=== PATIENT | female | born 1960 | race Caucasian/White ===

== ENCOUNTER 2016-12-06 12:44 | Inpatient (IN) | payer OTHER ==
--- NOTE | ~2016-12-06 | HP ---
History And Physical [facility] [address] [place]. [address] NAME: FÉLIX DURAN : 58 STATUS : ADM IN [facility]#: [id number] AGE: 56 ADM/REG DATE : 12/06/16 MR#: [id number] REPORT SERV DATE: 12/06/16 DICTATED BY: GODFREYXANDER DATE: 12/06/16 REPORT STATUS : Draft TRANSCRIBED BY: MODYosef DATE: 12/06/16 DATE OF ADMISSION: 12/06/2016 The patient is a 56-year-old female with a history of cerebral palsy and a history of anemia in the past, presented to [facility] with a complaint of abdominal pain, black stool, and coffee-ground vomiting. I initially spoke with the emergency room physician, Dr. Elliott, who reported that the patient had Hemoccult-positive stool and her blood pressure was stable, so he recommended GI evaluation. While seeing the patient, I noticed that she is short of breath and she is having cough which is nonproductive. Also she is complaining of epigastric pain which comes and goes and she says that is probably "my hiatal hernia". She denies chest pain, but she is complaining of upper abdominal pain as well as she is dyspneic and she said that she is dyspneic from the pain. She denies any fever or any rash or any sick contact. No constipation or diarrhea but she noticed black stool. All 14-point review of systems done and negative except what is stated in the history of present illness. PAST MEDICAL HISTORY: Past medical history known for history of hepatitis C, status post treatment in remission, history of gastroesophageal reflux disease, history of cerebral palsy, dyslipidemia, arthritis, and migraines as well as it includes a history of borderline vitamin B12 level, history of iron deficiency anemia in the past as well as she had a history of upper endoscopy on 08/17/[address] Melchor Hou showing a hiatal hernia, short segment of esophagus with inflammatory changes, and some chronic gastritis. She had a gastric biopsy which was normal. No evidence of H. pylori in 2010 as well as she had colonoscopy before which showed only internal hemorrhoids which were in moderate amount. She had a normal terminal ileum at that time in [address] Melchor Hou. SURGICAL HISTORY: Includes hysterectomy, cholecystectomy, appendectomy, and multiple orthopedic surgeries. Primary care physician is Dr. Valentine Marie. ALLERGIES: SHE IS ALLERGIC TO PENICILLIN, CODEINE, HYDROCODONE, OXYCODONE, ASPIRIN, AMPICILLIN, TAGAMET, LORATADINE, AND ZETIA. SOCIAL HISTORY: She lives alone. Her niece at bedside. She does not have children. She smokes one pack per day for the last 40 years and she still continues to smoke. She did not smoke since she was sick for a couple of days. No alcohol. No recreational drug use. FAMILY HISTORY: Significant for coronary artery disease in her mother and father. HOME MEDICATIONS: Tylenol 1000 mg daily as needed and Nexium 20 mg daily. PHYSICAL EXAMINATION: History And Physical [address] [address] NAME: FÉLIX DURAN : 58 STATUS : ADM IN [facility]#: [id number] AGE: 56 ADM/REG DATE : 12/06/16 MR#: [id number] REPORT SERV DATE: 12/06/16 DICTATED BY: XANDER DONAHUE DATE: 12/06/16 REPORT STATUS : Draft TRANSCRIBED BY: ABRIL DATE: 12/06/16 GENERAL: Well-nourished well-developed female not in acute distress. Resting quietly, but mildly short of breath. VITAL SIGNS: Blood pressure 159/81, temperature 98, heart rate 110 to 115, respiratory rate 20, and oxygen saturation 100 on room air. HEENT: Head atraumatic, normocephalic. Conjunctivae clear. Pupils are equal and reactive to light and accommodation. Extraocular muscles are intact. NECK: Supple. Trachea is midline. No supraventricular and cervical lymphadenopathy. LUNGS: Severely diminished breath sounds bilaterally. Slightly increased respiratory effort. CARDIOVASCULAR SYSTEM: Regular rate and rhythm. Mildly tachycardic. ABDOMEN: Soft. There is tenderness in the epigastric area and mild right upper quadrant. There is no guarding, no rebound. EXTREMITIES: No clubbing or cyanosis. Trace edema. PSYCHIATRIC: Normal mood and affect. SKIN: Normal color and turgor. LABORATORY RESULTS: Sodium 137, potassium 4.5, chloride 102, carbon dioxide 25, BUN 31, and creatinine 0.83. Blood sugar 110. ALT 17, AST 18. White count 10.2, hemoglobin 7.5, hematocrit 23.9, and a platelet count 386. PT 14.3, INR 1.1. I would like to mention that her hemoglobin last time was checked in our computer in August, it was 8.8. A chest x-ray is ordered by me and currently pending. EKG showed sinus tachycardia with a rate of 113. ASSESSMENT AND PLAN: This is a 56-year-old female with a past medical history of gastroesophageal reflux disease, hiatal hernia, history of anemia in the past with a history of upper and lower endoscopy in 2010, history of B12 deficiency and iron deficiency in the past, and history of cerebral palsy, presented with number 1. Coffee-ground emesis and black stool heme positive. 2. Anemia of acute blood loss. 3. Dyspnea. 4. Mild tachycardia. PLAN: The patient is anemic and her hemoglobin is 7.7, but she is also short of breath and the differential diagnosis here includes if she is short of breath from her anemia or she also has COPD exacerbation. Right now on auscultation, she has a significantly diminished breath sounds which with a history of smoking, full suspicion for COPD exacerbation although the patient does not have an official diagnosis of chronic obstructive pulmonary disease. She smoked for 40 years 1 pack per day and she continues to smoke. She is also having cough which is nonproductive but definitely she is coughing, so we will start evaluation with a chest x-ray. I asked the emergency room foundry technician to order chest x-ray, right now, to evaluate these as well as we will give her steroids and monitor her closely. With the epigastric discomfort which could be related to her hiatal hernia and coffee-ground emesis although I will be also suspicious for other problems. We will check her serial troponins as well as for the abdominal pain, I will do CT of the abdomen and pelvis without contrast. I will check her BNP, brain natriuretic peptide as well, to rule out any problems with the History And Physical [address] [place]. [address] NAME: FÉLIX DURAN : 58 STATUS : ADM IN PAT#: [id number] AGE: 56 ADM/REG DATE : 12/06/16 MR#: [id number] REPORT SERV DATE: 12/06/16 DICTATED BY: XANDER DONAHUE DATE: 03/25/17 REPORT STATUS : Draft TRANSCRIBED BY: ABRIL DATE: 12/06/16 congestive heart failure as well. 1. In the same time, we will give her 1 unit of blood transfusion followed with the Lasix. 2. We will check her urinalysis as well. We will put her on intravenous Protonix drip. Upon the review of old records, it was found that the patient had also head lice. We will ask nurses on the floor to evaluate her for head lice as well as we will put her on inhalers with albuterol ipratropium breathing treatment as well and we will follow up on these results. /ABRIL Xander Donahue M.D. / [id number] CC: Valentine Marie M.D.
--- NOTE | ~2016-12-06 | CN ---
Consultation Report [facility] [address] [place]. [address] NAME: FÉLIX DURAN : 58 STATUS : ADM IN [facility]#: [id number] AGE: 56 ADM/REG DATE : 12/06/16 MR#: [id number] REPORT SERV DATE: 12/07/16 DICTATED BY: MELCHOR HOU DATE: 12/07/16 REPORT STATUS : Draft TRANSCRIBED BY: ABRIL DATE: 12/07/16 CONSULTATION NOTE DATE OF CONSULTATION: 12/06/2016 REASON FOR CONSULTATION: The patient was admitted with nausea, vomiting, coffee-grounds emesis, and also some black stools and abdominal pain, also found to be very anemic. The patient has a history of chronic anemia as far as I can see until 2010. Also, noted to have heme-positive stool in the ER and admitted for upper endoscopy. The patient had exams as far as I know in 2010 or 2012, not sure. According to her, I had done the procedures, I do not have any reports to show that. She also complained epigastric pain and blaming to her large hiatal hernia. Also, has history of constipation off and on. PAST MEDICAL HISTORY: Significant for hepatitis C, status post treatment, in remission; history of GERD; history of cerebral palsy; dyslipidemia; arthritis; migraines; vitamin B12 deficiency; iron deficiency anemia. According to what I see in the note, I had done a procedure on 08/17/2011. Upper endoscopy shows hiatal hernia, gastritis. Had a colonoscopy in 2010 as well and noted to have hemorrhoids and normal terminal ileum. SURGICAL HISTORY: Hysterectomy, cholecystectomy, appendectomy, multiple orthopedic surgery. PRIMARY CARE PHYSICIAN: Dr. Valentine Marie. ALLERGIES: SHE IS ALLERGIC TO PENICILLIN, CODEINE, HYDROCODONE, OXYCODONE, ASPIRIN, AMPICILLIN, TAGAMET, LORATADINE, AND ZETIA. SOCIAL HISTORY: She lives alone. No children. Smokes a pack a day for forty years or more. No alcohol. No drugs. FAMILY HISTORY: Significant for coronary artery disease, both parents. HOME MEDICATIONS: Tylenol 1000 mg as needed. REVIEW OF SYSTEMS: Noted from the chart. Denies any headache. No chest pain. No difficulty breathing. Abdominal pain is better. No urinary symptoms. Some fatigue present. All other systems reviewed as per history. PHYSICAL EXAMINATION: VITAL SIGNS: Blood pressure 155/89, temperature 98, heart rate anywhere between 90 to 100 per minute, respirations about 16 to 18 per minute. GENERAL: This is a douglass female, in no acute distress, sitting in the bed. HEENT: No icterus. Pale conjunctivae. Consultation Report [facility] [address] [place]. [address] NAME: FÉLIX DURAN : 58 STATUS : ADM IN [facility]#: [id number] AGE: 56 ADM/REG DATE : 12/06/16 MR#: [id number] REPORT SERV DATE: 12/07/16 DICTATED BY: MELCHOR HOU DATE: 12/07/16 REPORT STATUS : Draft TRANSCRIBED BY: ABRIL DATE: 12/07/16 NECK: Supple. No JVD. CHEST: Bilateral fair air flow. Normal excursions. HEART: S1, S2. Regular rate and rhythm. ABDOMEN: Soft. Bowel sounds present. Has some left lower quadrant, left-sided tenderness, otherwise benign. EXTREMITIES: No clubbing, cyanosis, or edema. NEUROLOGICAL: Alert, oriented, moving all extremities. PSYCH: Normal affect. LABORATORY DATA: Sodium 137, potassium 4.5, BUN 31, creatinine 0.83. ALT and AST normal. White count is 10.2, hemoglobin 7.5, hematocrit 23.9, platelet count 286,000. PT 14.3, INR 1.1. RDW increased. CT of the abdomen is inconclusive. ASSESSMENT: Chronic history of anemia with nausea, vomiting, some coffee-ground emesis, and some melena. Also, has history of large hiatal hernia. PLAN: At this time is to evaluate this history with upper endoscopy as soon as possible. Also, give some blood transfusions and if necessary we can stop all the PPIs and maybe start an H2 blockers, which might help with iron deficiency anemia. We will also give some laxatives to clean her out. We will follow her in the office from then on. AMERICO/ABRIL Melchor Hou M.D. / [id number] CC: Romana Carpenter M.D.
--- NOTE | ~2016-12-06 | DS ---
Discharge Summary [facility] [id number] [place]. [address] NAME: FÉLIX DURAN : 58 STATUS : DIS IN PAT#: [id number] AGE: 56 ADM/REG DATE : 12/06/16 MR#: [id number] REPORT SERV DATE: 12/10/16 DICTATED BY: JOSE RAPHAEL DATE: 12/09/16 REPORT STATUS : Draft TRANSCRIBED BY: MODL DATE: 12/09/16 ADMISSION DATE: 12/06/2016 DISCHARGE DATE: 12/09/2016 FINAL DIAGNOSES: 1. Acute blood loss anemia, status post 1 unit packed red blood cells. 2. Reflux esophagitis; esophageal ulcer; gastric ulcer; hiatal hernia, moderate. 3. Upper gastrointestinal bleed secondary to above. 4. Chronic obstructive pulmonary disease. 5. Tobacco abuse. 6. History of cerebral palsy. DIAGNOSTIC EXAM: Chest x-ray showing no acute process, moderate-sized hiatal hernia, no change. CAT scan of the abdomen and pelvis showing no acute abdominal or pelvic pathology. No imaging explanation for reported abdominal pain or GI bleeding, status post cholecystectomy, appendectomy, hysterectomy, nonspecific hepatic steatosis pattern, moderate large hiatal hernia measuring 7.4 cm diameter. HOSPITAL COURSE: Please refer to the H and P done by Dr. Dallas dated 12/06/2016. Briefly, this is a 56-year-old female with cerebral palsy, hiatal hernia, comes in for abdominal pain, melena, and coffee-ground vomiting. The patient has been having some epigastric pain and believes that it is her hiatal hernia. The patient went to the emergency room and was admitted by Dr. Dallas. Further evaluation revealed that the patient needed a GI evaluation and Dr. Hou got involved. He did an EGD which revealed normal nasopharynx, dilation in the lower third of esophagus, grade C reflux esophagitis, nonbleeding esophageal ulcer, gastric ulcers and was biopsied. He recommended the patient to follow up in his clinic and continue an H2 reji. The patient's H and H were followed and it shows an initial H and H of 7.5 and 23.9. She got a unit of blood, and on discharge, it was 8.8 and 27.2. The patient did not have any more bleeding, but continued having the pain. When told that she is going to have this because of her ulcers, she understood the pathology of which. She expressed her wishes to go home. She will follow up with Dr. Valentine Marie in one to two weeks and Dr. Hou in two weeks and they will need to follow up the biopsy of the ulcers that was taken during the EGD. The patient will be on the following medications. Nexium 40 mg twice a day, Pepcid 20 mg twice a day, and Tylenol p.r.n. This has been explained to the patient and she agreed and understood the plan. TIME SPENT: 40 minutes. ED/ABRIL Jose Raphael M.D. Discharge Summary [address] [place]. [address] NAME: FÉLIX DURAN : 58 STATUS : DIS IN PAT#: [id number] AGE: 56 ADM/REG DATE : 12/06/16 MR#: [id number] REPORT SERV DATE: 12/10/16 DICTATED BY: JOSE RAPHAEL. DATE: 12/09/16 REPORT STATUS : Draft TRANSCRIBED BY: ABRIL DATE: 12/09/16 / [id number] CC: Romana Sherwood M.D.
--- NOTE | ~2016-12-06 | EGD ---
EGD REPORT [facility] [address] [address] NAME: WINIFRED DURAN : 58 STATUS : ADM IN PAT#: [id number] AGE: 56 ADM/REG DATE : 12/06/16 MR#: [id number] REPORT SERV DATE: 12/07/16 DICTATED BY: FANG ANDRADE DATE: 12/07/16 REPORT STATUS : Draft [facility]ANSCRIBED BY: [facility] DATE: 12/07/16 Endoscopy Center Patient Name: Winifred Duran Date of : 1960 Attending MD: FANG ANDRADE MD Procedure Date No Time: 12/07/2016 Procedure: Upper GI endoscopy Indications: Anemia, Hematemesis, Melena Referring MD: DANYELLE FERNANDEZ MD Medicines: Monitored Anesthesia Care Complications: No immediate complications. Procedure: Pre-Anesthesia Assessment: - ASA Grade Assessment: III - A patient with severe systemic disease. After obtaining informed consent, the endoscope was passed under direct vision. Throughout the procedure, the patient's blood pressure, pulse, and oxygen saturations were monitored continuously. The GIF [id number] was introduced through the mouth, and advanced to the third part of duodenum. The upper GI endoscopy was accomplished without difficulty. The patient tolerated the procedure well. Findings: The nasopharynx was normal. The lumen of the lower third of the esophagus was moderately dilated. LA Grade C (one or more mucosal breaks continuous between tops of 2 or more mucosal folds, less than 75% circumference) esophagitis with no bleeding was found in the lower third of the esophagus. One superficial esophageal ulcer with no bleeding and no stigmata of recent bleeding was found at the gastroesophageal junction. The lesion was 5 mm in largest dimension. Few non-bleeding superficial gastric ulcers with pigmented material were found in the cardia. The largest lesion was 10 mm in largest dimension. Biopsies were taken with a cold forceps for histology. Verification of patient identification for the specimen was done. Estimated blood loss was minimal. One non-bleeding cratered gastric ulcer with pigmented material was found in the cardia. The lesion was 14 mm in largest dimension. The examined duodenum was normal. Biopsies were taken with a cold forceps for histology. Verification of patient identification for the specimen was done. Estimated blood loss was minimal. A large hiatus hernia was present. Impression: - Normal nasopharynx. EGD REPORT [address] [place]. [address] NAME: WINIFRED DURAN : 58 STATUS : ADM IN [facility]#: [id number] AGE: 56 ADM/REG DATE : 12/06/16 MR#: [id number] REPORT SERV DATE: 12/07/16 DICTATED BY: FANG ANDRADE DATE: 12/07/16 REPORT STATUS : Draft TRANSCRIBED BY: [employer] DATE: 12/07/16 - Dilation in the lower third of the esophagus. - LA Grade C reflux esophagitis. - Non-bleeding esophageal ulcer. - Gastric ulcers. Biopsied. - Gastric ulcer. - Normal examined duodenum. Biopsied. Recommendation: - Follow an antireflux regimen daily. - Use Pepcid (famotidine) 20 mg PO BID daily. - Return to my office in 2 weeks. Procedure Code(s): --- Professional --- 42860, Esophagogastroduodenoscopy, flexible, transoral; with biopsy, single or multiple Diagnosis Code(s): --- Professional --- K22.8, Other specified diseases of esophagus K21.0, Gastro-esophageal reflux disease with esophagitis K22.10, Ulcer of esophagus without bleeding K25.9, Gastric ulcer, unspecified as acute or chronic, without hemorrhage or perforation D64.9, Anemia, unspecified K92.0, Hematemesis K92.1, Melena CPT copyright 2013 [employer]. All rights reserved. The codes documented in this report are preliminary and upon pedodontist review may be revised to meet current compliance requirements. FANG ANDRADE MD 12/07/2016 10:51 AM This report has been signed electronically. Number of Addenda: 0 Note Initiated On: 12/07/2016 9:18 AM Scope Withdrawal Time 0 hours 0 minutes 0 seconds
[~2016-12-06 12:44] MED LIST: FLEX PO; NEUR100 PO; NEXIUM40 PO; PAX20 PO
[2016-12-06 13:04] LABS: BASOPHILS 0.4 %; BASOPHILS ABSOLUTE 0.04 10/3/uL (0.0-0.16); EOSINOPHILS 0.1 %; EOSINOPHILS ABSOLUTE 0.01 10/3/uL (0.0-0.53); ER CBC TAT 0 Hrs 03 Mins; HEMOGLOBIN 7.5 g/dL (12.0-16.0); IMMATURE GRANULOCYTES 0.3 %; IMMATURE GRANULOCYTES ABSOLUTE 0.03 10/3/uL (0.0-0.11); LYMPHOCYTES 23.7 %; LYMPHOCYTES ABSOLUTE 2.41 10/3/uL (0.67-4.30); MEAN CORPUS HGB CONC 31.4 g/dL (32.0-36.0); MEAN CORPUSCULAR HEMOGLOB 25.1 pg (26.0-34.0); MEAN PLATELET VOLUME 9.8 fL (9.2-13.0); MONOCYTES 10.2 %; MONOCYTES ABSOLUTE 1.04 10/3/uL (0.21-1.20); NEUTROPHILS 65.3 %; NEUTROPHILS ABSOLUTE 6.64 10/3/uL (2.02-8.40); RED CELL COUNT 2.99 10/6/uL (4.0-5.6); WHITE BLOOD CELLS 10.2 10/3/uL (4.5-10.5)
[2016-12-06 13:05] LABS: HEMATOCRIT 23.9 % (36.0-48.0); MANUAL DIFF NO %; MEAN CORPUSCULAR VOLUME 79.9 fL (80-100); PLATELET COUNT 386 10/3/uL (150-400); RBC DISTRIBUTION WIDTH 16.3 % (12.0-16.0)
[2016-12-06 13:12] LABS: INTERNATIONAL NORMAL RATI 1.1 UNITS (-); PARTIAL THROMBO TIME 23.5 SEC (22.5-37.2); PROTIME (NOT ORD) 14.3 SEC (12.0-14.5)
[2016-12-06 13:19] LABS: A/G RATIO 0.9 (0.7-1.9); ALBUMIN 3.5 G/DL (3.5-5.0); CALCIUM, SERUM 9.8 MG/DL (8.5-10.4); CHLORIDE, SERUM 102 MMOL/L (96-112); CO2 (CARBON DIOXIDE) 25 MMOL/L (24-34); CREATININE 0.83 MG/DL (0.55-1.02); GFR AFRICAN AMERICAN 91 ML/MIN (>=60); GFR NON AFRICAN AMERICAN 78 ML/MIN (>=60); GLOBULIN 4.1 G/DL (2.5-4.1); POTASSIUM, SERUM 4.5 MMOL/L (3.5-5.3); SGOT(AST) 18 U/L (5-40); SGPT(ALT) 17 U/L (5-65); SODIUM, SERUM 137 MMOL/L (135-148); TOTAL BILIRUBIN 0.3 MG/DL (0-1.2); TOTAL PROTEIN 7.6 G/DL (6.0-8.5)
[2016-12-06 13:20] LABS: ALKALINE PHOSPHATASE 68 U/L (45-117); BUN (BLOOD UREA NITROGEN) 31 MG/DL (6-23); GLUCOSE, SERUM 110 MG/DL (60-99)
[2016-12-06] MEDS ORDERED: ACET500CAP PO (14:04)
[2016-12-06] MEDS ORDERED: NEXIUM20 M1 PO (14:04)
[2016-12-06 20:14] LABS: FOLATE 9.3 NG/ML (>5.2); TROPONIN I 0.03 NG/ML (<0.05); ULTRASENSITIVE TSH 4.29 MCIU/ML (0.358-3.740)
[2016-12-06 22:57] LABS: HEMOGLOBIN 8.8 g/dL (12.0-16.0)
[2016-12-06 22:58] LABS: HEMATOCRIT 27.3 % (36.0-48.0)
[2016-12-07 01:01] LABS: BASOPHILS 0.3 %; BASOPHILS ABSOLUTE 0.03 10/3/uL (0.0-0.16); EOSINOPHILS 0.1 %; EOSINOPHILS ABSOLUTE 0.01 10/3/uL (0.0-0.53); HEMATOCRIT 25.5 % (36.0-48.0); HEMOGLOBIN 8.4 g/dL (12.0-16.0); IMMATURE GRANULOCYTES 0.4 %; IMMATURE GRANULOCYTES ABSOLUTE 0.05 10/3/uL (0.0-0.11); LYMPHOCYTES 10.2 %; LYMPHOCYTES ABSOLUTE 1.15 10/3/uL (0.67-4.30); MEAN CORPUS HGB CONC 32.9 g/dL (32.0-36.0); MEAN CORPUSCULAR HEMOGLOB 26.1 pg (26.0-34.0); MEAN CORPUSCULAR VOLUME 79.2 fL (80-100); MEAN PLATELET VOLUME 10.4 fL (9.2-13.0); MONOCYTES 1.4 %; MONOCYTES ABSOLUTE 0.16 10/3/uL (0.21-1.20); NEUTROPHILS 87.6 %; NEUTROPHILS ABSOLUTE 9.82 10/3/uL (2.02-8.40); NUCLEATED RED BLOOD CELLS 0.5 /100WBC (0-0); PLATELET COUNT 333 10/3/uL (150-400); RBC DISTRIBUTION WIDTH 16.4 % (12.0-16.0); RED CELL COUNT 3.22 10/6/uL (4.0-5.6); WHITE BLOOD CELLS 11.2 10/3/uL (4.5-10.5)
[2016-12-07 01:03] LABS: MANUAL DIFF NO %
[2016-12-07 01:13] LABS: CHLORIDE, SERUM 100 MMOL/L (96-112); CO2 (CARBON DIOXIDE) 25 MMOL/L (24-34); CREATININE 0.89 MG/DL (0.55-1.02); GFR AFRICAN AMERICAN 83 ML/MIN (>=60); GFR NON AFRICAN AMERICAN 72 ML/MIN (>=60); POTASSIUM, SERUM 3.8 MMOL/L (3.5-5.3); SODIUM, SERUM 136 MMOL/L (135-148); TROPONIN I <0.02 NG/ML (<0.05)
[2016-12-07 01:14] LABS: BUN (BLOOD UREA NITROGEN) 23 MG/DL (6-23); CALCIUM, SERUM 8.5 MG/DL (8.5-10.4); GLUCOSE, SERUM 141 MG/DL (60-99)
[2016-12-07 08:28] LABS: HEMATOCRIT 25.2 % (36.0-48.0); HEMOGLOBIN 8.3 g/dL (12.0-16.0)
[2016-12-07 10:05] LABS: PROCALCITONIN 0.06 ng/mL (<0.5)
[2016-12-07 16:29] LABS: HEMATOCRIT 24.2 % (36.0-48.0); HEMOGLOBIN 7.8 g/dL (12.0-16.0)
[2016-12-08 06:52] LABS: HEMATOCRIT 23.9 % (36.0-48.0); HEMOGLOBIN 7.4 g/dL (12.0-16.0)
[2016-12-08 21:09] LABS: HEMATOCRIT 28.5 % (36.0-48.0); HEMOGLOBIN 9.2 g/dL (12.0-16.0)
[2016-12-09 05:35] LABS: BASOPHILS 0.3 %; BASOPHILS ABSOLUTE 0.02 10/3/uL (0.0-0.16); EOSINOPHILS 0.5 %; EOSINOPHILS ABSOLUTE 0.04 10/3/uL (0.0-0.53); HEMATOCRIT 27.2 % (36.0-48.0); HEMOGLOBIN 8.8 g/dL (12.0-16.0); IMMATURE GRANULOCYTES 0.4 %; IMMATURE GRANULOCYTES ABSOLUTE 0.03 10/3/uL (0.0-0.11); LYMPHOCYTES 37.8 %; LYMPHOCYTES ABSOLUTE 2.98 10/3/uL (0.67-4.30); MEAN CORPUS HGB CONC 32.4 g/dL (32.0-36.0); MEAN CORPUSCULAR HEMOGLOB 26.7 pg (26.0-34.0); MEAN PLATELET VOLUME 10.1 fL (9.2-13.0); MONOCYTES 9.5 %; MONOCYTES ABSOLUTE 0.75 10/3/uL (0.21-1.20); NEUTROPHILS 51.5 %; NEUTROPHILS ABSOLUTE 4.06 10/3/uL (2.02-8.40); PLATELET COUNT 245 10/3/uL (150-400); RBC DISTRIBUTION WIDTH 16.6 % (12.0-16.0); WHITE BLOOD CELLS 7.9 10/3/uL (4.5-10.5)
[2016-12-09 05:38] LABS: MANUAL DIFF NO %; MEAN CORPUSCULAR VOLUME 82.4 fL (80-100)
[2016-12-09 05:53] LABS: CALCIUM, SERUM 8.9 MG/DL (8.5-10.4); CHLORIDE, SERUM 104 MMOL/L (96-112); CO2 (CARBON DIOXIDE) 27 MMOL/L (24-34); CREATININE 0.77 MG/DL (0.55-1.02); GFR AFRICAN AMERICAN 99 ML/MIN (>=60); GFR NON AFRICAN AMERICAN 86 ML/MIN (>=60); POTASSIUM, SERUM 3.4 MMOL/L (3.5-5.3); SODIUM, SERUM 139 MMOL/L (135-148)
[2016-12-09 06:02] LABS: BUN (BLOOD UREA NITROGEN) 10 MG/DL (6-23); GLUCOSE, SERUM 85 MG/DL (60-99)
[2016-12-09] MEDS ORDERED: NEXIUM40 PO (09:54)
[2016-12-09] MEDS ORDERED: PEP20 PO (09:55)
[2016-12-09 10:37] LABS: HEMATOCRIT 28.6 % (36.0-48.0); HEMOGLOBIN 9.2 g/dL (12.0-16.0)
== END 2016-12-09 12:38 | disposition home or self-care (01) | DRG 381 ==
LOC: ER 12:44 → 5SO 15:34
PROVIDERS: Emergency Medicine; Hospitalist; Internal Medicine Gastroenterology
PROC: 30233N1 Transfusion of Nonautologous Red Blood Cells into Peripheral Vein, Percutaneous Approach (ICD-10-PCS; 2016-12-06)
PROC: 0DB98ZX Excision of Duodenum, Via Natural or Artificial Opening Endoscopic, Diagnostic (ICD-10-PCS; 2016-12-07)
PROC: 0DB68ZX Excision of Stomach, Via Natural or Artificial Opening Endoscopic, Diagnostic (ICD-10-PCS; principal; 2016-12-07 10:34)
DX: K22.11 Ulcer of esophagus with bleeding (principal); D62 Acute posthemorrhagic anemia; K25.4 Chronic or unspecified gastric ulcer with hemorrhage; K92.0 Hematemesis; K21.0 Gastro-esophageal reflux disease with esophagitis; F17.210 Nicotine dependence, cigarettes, uncomplicated; G80.9 Cerebral palsy, unspecified; K44.9 Diaphragmatic hernia without obstruction or gangrene; B18.2 Chronic viral hepatitis C; E78.5 Hyperlipidemia, unspecified; K29.50 Unspecified chronic gastritis without bleeding; Z90.710 Acquired absence of both cervix and uterus; Z90.49 Acquired absence of other specified parts of digestive tract; Z98.890 Other specified postprocedural states; Z88.0 Allergy status to penicillin; Z88.5 Allergy status to narcotic agent; Z88.6 Allergy status to analgesic agent; Z88.8 Allergy status to other drugs, medicaments and biological substances; Z82.49 Family history of ischemic heart disease and other diseases of the circulatory system; Z28.21 Immunization not carried out because of patient refusal
CPT/HCPCS: 36415; 36430; 71010; 74176; 80048; 80053; 82607; 82728; 82746; 83036; 83540; 83550; 83735; 83880; 84132; 84145; 84443; 84484; 85014; 85018; 85025; 85610; 85730; 86850; 86900; 86901; 86920; 88305; 93005; 94640; 99285; A9270-GY; C9113; J2920; P9016